=== PATIENT | male | born 1990 | race African-American/Black ===

== ENCOUNTER 2017-11-09 03:04 | Emergency (ER) | payer BC, OTHER ==
[2017-11-09 04:03] VITALS: BMI 27.3
[2017-11-09] MEDS ORDERED: ALBUTEROL SO4 2.5/IPRATROPIUM 0.5 INH SOL 3 ML VIAL.NEB. NEB ONE ×2 (05:33→07:20)
[2017-11-09] MEDS ORDERED: guaiFENesin 200 MG/10 ML 10 ML UNIT-DOSE CUPS PO ONE (05:33)
[2017-11-09] MEDS ORDERED: IBUPROFEN 400 MG TABLET (FP) PO ONE ×2 (05:33→07:20)
--- NOTE | 2017-11-09 05:33 | PDOC ---
History of Present Illness - General Chief Complaint: Cold Symptoms Stated Complaint: BACK PAIN/COUGH/FEVER Time Seen by Provider: 11/09/17 05:11 History Source: Patient Exam Limitations: No Limitations - History of Present Illness Initial Comments: 11/09/17 06:57 Patient is a 27-year-old male with no past medical history who presents emergency department today with 2 days of cough. Patient states that last night he feels like he develops a fever. Admits to chills, body aches, headaches, back pain and dysuria. He states that he took Tylenol with minimal relief of his symptoms. Denies nausea, vomiting, diarrhea, earache and sore throat. Patient did not receive a flu shot this year. Past History - Travel Traveled outside of the country in the last 30 days: No Close contact w/someone who was outside of country & ill: No - Past Medical History Allergies/Adverse Reactions: Allergies Allergy/AdvReac Type Severity Reaction Status Date / Time No Known Allergies Allergy Verified 11/09/17 04:01 Home Medications: Ambulatory Orders NK [No Known Home Medication] 11/09/17 - Suicide/Smoking/Psychosocial Hx Smoking History: Never smoked Have you smoked in the past 12 months: No Hx Alcohol Use: No Drug/Substance Use Hx: Yes (marijuana) Review of Systems - Review of Systems Able to Perform ROS?: Yes Comments:: 11/09/17 06:58 CONSTITUTIONAL: Present: fever, chills, body aches Absent: fever, chills, diaphoresis, generalized weakness, malaise, loss of appetite HEENT: Present:rhinorrhea, nasal congestion Absent: throat pain, throat swelling, difficulty swallowing, mouth swelling, ear pain, eye pain, visual Changes CARDIOVASCULAR: Absent: chest pain, loss of consciousness, palpitations, irregular heart rate, peripheral edema RESPIRATORY: Present: productive cough Absent: shortness of breath, dyspnea with exertion, orthopnea, wheezing, stridor, hemoptysis GASTROINTESTINAL: Absent: abdominal pain, abdominal distension, nausea, vomiting, diarrhea, constipation, melena, hematochezia GENITOURINARY: Present: dysuria Absent: dysuria, frequency, urgency, hesitancy, hematuria, flank pain, genital pain MUSCULOSKELETAL: Absent: myalgia, arthralgia, joint swelling SKIN: Absent: rash, itching, pallor HEMATOLOGIC/IMMUNOLOGIC: Absent: easy bleeding, easy bruising, lymphadenopathy, frequent infections ENDOCRINE: Absent: unexplained weight gain, unexplained weight loss, heat intolerance, cold intolerance NEUROLOGIC: Absent: headache, focal weakness or paresthesias, dizziness, unsteady gait, seizure, mental status changes, bladder or bowel incontinence PSYCHIATRIC: Absent: anxiety, depression, suicidal or homicidal ideation, hallucinations. Is the patient limited Danish proficient: No *Physical Exam - Vital Signs Last Vital Signs Temp Pulse Resp BP Pulse Ox 100.8 F H 98 H 20 136/79 97 11/09/17 03:08 11/09/17 03:08 11/09/17 03:08 11/09/17 03:08 11/09/17 03:08 - Physical Exam Comments: 11/09/17 06:59 GENERAL: Well developed, well nourished. Awake and alert. In mild distress, coughing. HEENT: Normocephalic, atraumatic. PERRLA, EOMI. No conjunctival pallor. Sclera are non- icteric. Moist mucous membranes. Oropharynx is clear. NECK: Supple. Full ROM. No JVD. Carotid pulses 2+ and symmetric, without bruits. No thyromegaly. No lymphadenopathy. CARDIOVASCULAR: Regular rate and rhythm. No murmurs, rubs, or gallops. Distal pulses are 2+ and symmetric. PULMONARY: No evidence of respiratory distress. Lungs clear to auscultation bilaterally. No wheezing, rales or rhonchi. ABDOMINAL: Soft. Non-tender. Non-distended. No rebound or guarding. No organomegaly. Normoactive bowel sounds. MUSCULOSKELETAL Normal range of motion at all joints. TTP of upper and lower back No bony deformities. No CVA tenderness. EXTREMITIES: No cyanosis. No clubbing. No edema. No calf tenderness. SKIN: Warm and dry. Normal capillary refill. No rashes. No jaundice. NEUROLOGICAL: Alert, awake, appropriate. Cranial nerves 2-12 intact. No deficits to light touch and temperature in face, upper extremities and lower extremities. No motor deficits in the in face, upper extremities and lower extremities. Normoreflexic in the upper and lower extremities. Normal speech. Toes are down- going bilaterally. Gait is normal without ataxia. PSYCHIATRIC: Cooperative. Good eye contact. Appropriate mood and affect. Medical Decision Making - Medical Decision Making 11/09/17 07:00 Patient is a 27-year-old male no past medical history who presents with 2 days of flulike symptoms. Will flu swab at this time. Given urinary symptoms we'll also obtain a UA. No CVA tenderness. We'll give 800 mg of Motrin for pain and fever. Patient currently is temperature of 100.7 in the ED. We'll also give DuoNeb and Robitussin for cough and shortness of breath. Sign out given to STEVEN Ozuna. Pending UA, micro. Anticipate to d/c home when labs back
[2017-11-09 06:47] LABS: URINE APPEARANCE CLEAR; URINE BILIRUBIN NEGATIVE (NEGATIVE); URINE BLOOD NEGATIVE (NEGATIVE); URINE COLOR STRAW; URINE GLUCOSE (UA) NEGATIVE (NEGATIVE); URINE KETONE NEGATIVE (NEGATIVE); URINE NITRITE NEGATIVE (NEGATIVE); URINE PROTEIN NEGATIVE (NEGATIVE); URINE UROBILINOGEN NEGATIVE mg/dL (0.2-1.0)
[2017-11-09] MEDS ORDERED: guaiFENesin/D-METHORPHAN HB 10 ML UNIT-DOSE CUPS ONE (07:20)
[2017-11-09 07:42] LABS: URINE LEUK ESTERASE 2+ (NEGATIVE)
[2017-11-09 07:44] LABS: EPI CELLS RARE /HPF (FEW); URINE BACTERIA FEW /hpf (NONE SEEN); URINE HYALINE CAST 1 /lpf
--- NOTE | 2017-11-09 08:31 | PDOC ---
ED Treatment Course - ADDITIONAL ORDERS Additional order review: Laboratory Results 11/09/17 06:22 Urine Color Straw Urine Appearance Clear Urine pH 7.0 Ur Specific [place] 1.012 Urine Protein Negative Urine Glucose (UA) Negative Urine Ketones Negative Urine Blood Negative Urine Nitrite Negative Urine Bilirubin Negative Urine Urobilinogen Negative Ur Leukocyte Esterase 2+ H Urine WBC (Auto) 17 Urine RBC (Auto) 1 Ur Epithelial Cells Rare Urine Bacteria Few Hyaline Casts 1 11/09/17 06:22 Influenza Types A,B Antigen (ADY) - Final Nasopharyngeal Swab - Final - Medications Given in the ED: ED Medications Discontinued Medications Generic Name Dose Route Start Last Admin Trade Name Dieudonneq PRN Reason Stop Dose Admin Albuterol/Ipratropium 1 amp 11/09/17 05:33 11/09/17 07:26 Duoneb - NEB 11/09/17 05:34 1 amp ONCE ONE Administration Guaifenesin 10 ml 11/09/17 05:33 11/09/17 07:26 Robitussin - PO 11/09/17 05:34 10 ml ONCE ONE Administration Ibuprofen 800 mg 11/09/17 05:33 11/09/17 07:26 Motrin - PO 11/09/17 05:34 800 mg ONCE ONE Administration Progress Note - Progress Note Progress Note: I have received report from STEVEN Choe regarding this patient. Pt's initial chief complaint: 2 days of cough, fever, and flu like symptoms. Pt's work up completed prior to sign out: none Pt treatment given from prior staff: albuterol neb, cough medicine, Ibuprofen Pt plan to be completed: awaiting flu swab Dispo: Discharge Medical Decision Making - Medical Decision Making A/P: 27 y/o male with flu like symptoms x 2 days. Flu swab negative. Will discharge to home with supportive care instructions. The patient verbalizes understanding of all instructions, has no further questions and is awaiting discharge. *DC/Admit/Observation/Transfer Diagnosis at time of Disposition: Viral URI with cough - Discharge Dispostion Disposition: HOME Condition at time of disposition: Improved - Referrals - Patient Instructions Printed Discharge Instructions: DI for Viral Upper Respiratory Infection -- Adult Additional Instructions: Discharge Instructions: -Your flu swab was negative -please continue taking tylenol and motrin for fever and body aches -Drink plenty of fluids and get lots of rest -Return to the ER with any worsening or concerning symptoms. - Post Discharge Activity Forms/Work/School Notes: Back to Work
[2017-11-09] MEDS ORDERED: ACETAMINOPHEN 325 MG TABLET (FP) PO ONE (08:46)
[2017-11-09] MEDS ORDERED: ACETAMINOPHEN 325 MG TABLET (FP) ONE (08:48)
[2017-11-09 09:42] VITALS: BP 114/59; PULSE 81; TEMP 99.2
== END 2017-11-09 09:45 | disposition home or self-care (01) ==
LOC: JER 03:04
PROC: 3E0F7GC Introduction of Other Therapeutic Substance into Respiratory Tract, Via Natural or Artificial Opening (ICD-10-PCS; principal; 2017-11-09)
DX: J06.9 Acute upper respiratory infection, unspecified (principal); B97.89 Other viral agents as the cause of diseases classified elsewhere
CPT/HCPCS: 81003; 81015; 87804; 99281-25